=== PATIENT | female | born 1980 ===

== ENCOUNTER 2017-03-01 22:50 | Observation (INO) | payer OTHER | END 2017-03-02 00:30 | disposition home or self-care (01) | LOC: FLD 22:50 | PROVIDERS: ADMIT Obstetrics & Gynecology; ATTEND Obstetrics & Gynecology | DX: O36.8120 Decreased fetal movements, second trimester, not applicable or unspecified (principal); Z3A.25 25 weeks gestation of pregnancy | CPT/HCPCS: G0378 ×2 ==